=== PATIENT | female | born 1985 | race Caucasian/White ===

== ENCOUNTER 2018-01-31 10:28 | Inpatient (IN) | payer MEDICAID ==
[~2018-01-31] VITALS: Ht 165.1 cm; Wt 99.3 kg
[2018-01-31] MEDS ORDERED: PREN-55 PO (11:04)
[2018-01-31] MEDS ORDERED: FERR325T23 GT (11:06)
[2018-01-31] MEDS ORDERED: CALC-1042 PO (11:07)
[2018-01-31] MEDS ORDERED: INDOMETHACIN 50MG CAPSULE PO SCH (11:15)
[2018-01-31] MEDS ORDERED: LACTATED RINGERS 1,000 ML IV SCH (11:15)
[2018-01-31] MEDS ORDERED: CEFAZOLIN 2,000 MG in DEXT 5% WATER 100 ML IV SCH (11:15)
[2018-01-31] MEDS ORDERED: SODIUM CHLORIDE 0.9% 1,000 ML IV SCH (11:38)
[2018-01-31] MEDS ORDERED: ONDANSETRON HCL 4MG/2ML INJ IV PRN (11:45)
[2018-01-31] MEDS ORDERED: MEPERIDINE HCL/PF 25MG/ML CPJ IV PRN (11:45)
[2018-01-31] MEDS ORDERED: ATROPINE SULFATE 0.4MG/ML VIAL IV PRN (11:45)
[2018-01-31] MEDS ORDERED: BUPIVACAINE HCL/PF 0.75% (7.5MG/ML) 10ML ONE (11:51)
[2018-01-31 11:52] LABS: BASOPHILS % 0.5 % (0.0-2.0); EOSINOPHILS % 1.7 % (0.0-5.0); HEMATOCRIT. 33.3 % (36.0-48.0); HEMOGLOBIN. 11.4 g/dL (12.0-16.0); LYMPHOCYTES % 23.9 % (20.0-50.0); MEAN CORPUSCULAR HEMOGLOBIN 29.1 pg (28.0-32.0); MEAN CORPUSCULAR VOLUME 85.2 fL (81.0-99.0); MEAN PLATELET VOLUME 7.7 fl (7.4-10.4); NEUTROPHILS % 68.9 % (40.0-76.0); PLATELET 277 x1000/uL (130-400); RED BLOOD CELL COUNT 3.91 mill/uL (4.2-5.4); RED CELL DISTRIBUTION WIDTH 13.1 % (11.6-14.6)
[2018-01-31 11:56] LABS: CHLORIDE 107 mEq/L (98-107)
[2018-01-31 12:04] LABS: PROTHROMBIN TIME 10.2 sec (9.1-11.1)
[2018-01-31] MEDS ORDERED: CEFAZOLIN SODIUM 1000MG/VIAL ONE (12:27)
[2018-01-31] MEDS ORDERED: KETOROLAC 30MG/ML VIAL ONE (12:31)
[2018-01-31] MEDS ORDERED: INDOMETHACIN 50MG CAPSULE PO STA (12:49)
[2018-01-31] MEDS ORDERED: MAGNESIUM 2 G PREMIX 50 ML IV ONE (13:00)
[2018-01-31] MEDS ORDERED: MAGNESIUM 4 G PREMIX 100 ML IV ONE (13:00)
[2018-01-31] MEDS ORDERED: KETOROLAC 30MG/ML VIAL IV PRN (13:00)
[2018-01-31] MEDS ORDERED: MAGNESIUM 20 G PREMIX (L & D) 500 ML IV SCH (13:15)
[2018-01-31] MEDS ORDERED: FERROUS SULFATE 325MG TABLET PO SCH (18:00)
[2018-01-31 18:50] VITALS: BP 105/58
[2018-01-31 19:35] VITALS: BP 103/58
[2018-01-31] MEDS ORDERED: NIFEDIPINE 10MG CAPSULE PO NR (20:30)
[2018-01-31 20:37] VITALS: BP 103/58
[2018-02-01] MEDS ORDERED: FERROUS SULFATE 325MG TABLET PO SCH (09:00)
== END 2018-01-31 21:00 | disposition home or self-care (01) | DRG 546 ==
LOC: UNDOADMOB 10:28 → ORIP 10:28 → OBSVTOIN 10:39 → L&D 10:39 → 7EST PP/OB 18:06
PROVIDERS: ADMIT Acupuncturist; ATTEND Acupuncturist
PROC: 0UVC7ZZ Restriction of Cervix, Via Natural or Artificial Opening (ICD-10-PCS; principal; 2018-01-31 11:30)
DX: O34.32 Maternal care for cervical incompetence, second trimester (principal); Z3A.21 21 weeks gestation of pregnancy
CPT/HCPCS: 36415; 85384; G0378; J0690; J1885; J2405; J3475; J3490; J7060; J7120

== ENCOUNTER 2018-06-07 06:46 | Observation (INO) | payer MEDICAID, OTHER ==
[~2018-06-07] VITALS: Ht 165.1 cm; Wt 106.6 kg
[~2018-06-07 06:46] MED LIST: FERR325T23 GT; PREN-55 PO
[2018-06-07] MEDS ORDERED: MEPERIDINE HCL/PF 50MG/ML CPJ IV ONE (14:30)
[2018-06-07] MEDS ORDERED: LACTATED RINGERS 1,000 ML IV SCH (14:30)
[2018-06-07 14:42] VITALS: BP 124/69
== END 2018-06-07 17:22 | disposition home or self-care (01) ==
LOC: OB TRIAGE 06:46 → 8 EST LDRP 16:50
PROVIDERS: ADMIT Medical Genetics Clinical Genetics (M.D.); ATTEND Medical Genetics Clinical Genetics (M.D.)
DX: O34.33 Maternal care for cervical incompetence, third trimester (principal); Z3A.36 36 weeks gestation of pregnancy
CPT/HCPCS: 96374; G0378; J2175; 59871; 99281; J7120